=== PATIENT | male | born 1975 | race African-American/Black ===

== ENCOUNTER 2017-09-07 08:58 | Emergency (ER) | payer OTHER ==
[~2017-09-07] VITALS: Ht 170.2 cm; Wt 79.4 kg
--- NOTE | 2017-09-07 09:20 | NUR ---
X RAY IN ROOM PER ORDER
--- NOTE | 2017-09-07 09:57 | NUR ---
Patient discharged to home in stable conditon. Written and verbal after care instructions given. Patient verbalizes understanding of instructions.pt has own crutches.
== END 2017-09-07 09:59 | disposition home or self-care (01) ==
LOC: ER 08:58
DX: S93.402A Sprain of unspecified ligament of left ankle, initial encounter (principal); X58.XXXA Exposure to other specified factors, initial encounter; Y93.66 Activity, soccer; Y92.89 Other specified places as the place of occurrence of the external cause; Y99.8 Other external cause status
CPT/HCPCS: 73610; A4663